=== PATIENT | female | born 1970 | race Caucasian/White ===

== ENCOUNTER 2020-10-15 15:11 | Emergency (ER) | payer OTHER, SELFPAY ==
[~2020-10-15] VITALS: Ht 154.9 cm; Wt 63.5 kg
[2020-10-15 15:13] VITALS: Ht 154.9 cm; Wt 63.5 kg
[2020-10-15 16:58] VITALS: BP 151/105
== END 2020-10-15 17:05 | disposition home or self-care (01) ==
LOC: ED 15:11
DX: M79.10 Myalgia, unspecified site (principal); I10 Essential (primary) hypertension; E78.00 Pure hypercholesterolemia, unspecified; G43.909 Migraine, unspecified, not intractable, without status migrainosus; Z20.828 Contact with and (suspected) exposure to other viral communicable diseases
CPT/HCPCS: U0003